=== PATIENT | male | born 1980 | race Hispanic/Latino ===

== ENCOUNTER 2020-04-11 15:56 | Inpatient (IN) | payer SELFPAY ==
[~2020-04-11 15:56] MED LIST: Iopamidol-370 76% 500 ML 1 ML ONE
[2020-04-11 16:38] LABS: #Lymphocytes 1.6 thou/uL (1.20-3.40); #Monocytes 1.5 thou/uL (0.11-0.59); #Neutrophils 10.9 thou/uL (1.40-6.50); %Basophils 0.2 % (0.0-1.0); %Eosinophils 0.3 % (0.0-10.0); %Lymphocytes 11.5 % (21.0-51.0); %Monocytes 10.4 % (0.0-10.0); %Neutrophils 77.6 % (42.0-75.0); Mean Corpuscular Hemoglobin 29.6 pg (27.0-31.0); Mean Corpuscular Volume 89.6 fL (78.0-98.0); Mean Platelet Volume 8.2 fL (7.4-10.4); Platelet Count 237 thou/uL (130-400); RBC Distribution Width 12.1 % (11.5-14.5); Red Blood Cell (RBC) Count 5.06 mill/uL (4.70-6.10); White Blood Cell (WBC) Count 14.1 thou/uL (4.8-10.8)
[2020-04-11 16:52] LABS: Bacteria/HPF None Seen HPF (None Seen); Bilirubin Negative (Negative); Blood, Urine Trace (Negative); Clarity Clear (Clear); Glucose, Urine (Dipstick) Normal (Negative); Ketone, Urine Negative (Negative); Leukocyte Negative Leu/uL (Negative); Nitrite Negative (Negative); Protein, Urine (Dipstick) Negative (Neg-Trace); RBC/HPF 0-3 HPF (0-3); Specific Gravity, Urine 1.014 (1.002-1.036); Squamous Epithelial None Seen HPF (0-3); Urobilinogen Normal mg/dL (Less than 2); WBC/HPF 0-3 HPF (0-3)
[2020-04-11] MEDS ORDERED: Morphine 4 MG/ML VIAL ONE ×2 (16:55→22:19)
[2020-04-11] MEDS ORDERED: Ondansetron PF 4 MG/2 ML Vial ONE ×2 (16:55→22:16)
[2020-04-11 16:59] LABS: ALT (SGPT) 55 U/L (8-55); AST (SGOT) 28 U/L (5-34); Alkaline Phosphatase 164 U/L (40-110); Anion Gap 14 mmol/L (10-20); BUN (Urea Nitrogen) 13 mg/dL (8.9-20.6); Bilirubin, Total 0.9 mg/dL (0.2-1.2); Calc. Creatinine Clearance 0 mL/min (70-130); Calcium 9.4 mg/dL (7.8-10.44); Carbon Dioxide 27 mmol/L (22-29); Chloride 98 mmol/L (98-107); Estimated GFR-MDRD 88; Globulin 4.1 g/dL (2.4-3.5); Glucose 103 mg/dL (70-105); Lipase 14 U/L (8-78); Potassium 4.3 mmol/L (3.5-5.1); Protein, Total 8.1 g/dL (6.0-8.3); Sodium 135 mmol/L (136-145)
--- NOTE | 2020-04-11 18:00 | CT ---
CT ABDOMEN WITH CONTRAST CT PELVIS WITH CONTRAST: DATE: 04/11/2020 HISTORY: 39-year-old male with right lower quadrant abdominal pain. Evaluate for appendicitis. COMPARISON: None TECHNIQUE: IV injection of iodinated contrast media: administered. Oral contrast media:Not administered FINDINGS: Many centimeters of the distal ileum, including terminal ileum, has severe mural thickening, with exp ansion of caliber up to 3.5 cm. There is severe surrounding fat stranding representing severe edema. This also involves the terminal ileum. There is secondary involvement the edema and inflammation involving the proximal portion of the appen louie. The distal portion of the appendix is normal. There is no organized abscess. Multiple mildly enlarged right lower quadrant mesenteric lymph nodes. Urinary bladder, abdominal aorta, kidneys, pancreas, adrenals, and spleen, are normal. Questionable f atty liver. No other hepatic abnormality identified. No pneumoperitoneum. No small bowel obstruction. IMPRESSION: Severe right lower quadrant inflammatory intra-abdominal process, primarily involving the distal ileu m, and probably secondary involvement of the cecum and proximal portion of the appendix. This is probably severe inflammatory bowel disease, more specifically Crohn's disease.
[2020-04-11] MEDS ORDERED: Piperacillin/Tazobactam 4.5 GM VIAL ONE (18:18)
[2020-04-11] MEDS ORDERED: Ondansetron PF 4 MG/2 ML Vial IVP PRN (19:31)
[2020-04-11] MEDS ORDERED: Ondansetron ODT 4 MG TAB PO PRN (19:31)
[2020-04-11] MEDS ORDERED: Calcium Carbonate 500 MG ChewTAB PO PRN (19:31)
[2020-04-11] MEDS ORDERED: Acetaminophen 325 MG TAB PO PRN (19:31)
[2020-04-11] MEDS ORDERED: Acetaminophen/Codeine 30-300mg Tablet PO PRN (19:35)
--- NOTE | 2020-04-11 20:11 | PDOC.HHP ---
Hospitalist HPI - History of Present Illness Abdominal pain History of Present Illness: Patient is a 39-year-old male with no previous GI history presents to the emergency room with worsening abdominal pain of 4 to 5 days duration. The pain got worse today for which she presented to the emergency room. The pain is intermittent moderate in intensity without any relieving factor. He has lost his appetite since food is making the pain worse. He denies any nausea, vomiting, diarrhea or change in bowel habits. He normally has 1 bowel movement on a daily basis. No hematemesis, melena or hematochezia reported. He denies any weight loss. No oral ulcers, joint pain, fever, chills, sick contacts or t ravel reported. In the emergency room his initial vital signs showed temperature 97.7 with respiration of 16 pulse rate of 85 with a blood pressure of 140/78. O2 saturation was 99% on room air. CT scan of the abdomen was consistent with severe right lower quadrant inflammatory intra-abdominal process primary involving the distal ileum and probably secondary involvement of the cecum and proximal portion of the appendix suspicious for Crohn's disease. He was evaluated by general surgery who recommended medical admission. He was started on IV Zosyn with IV fluids. He also received morphine with Zofran in the emergency room. Hospitalist ROS - Review of Systems Respiratory: denies: cough, dry, shortness of breath, hemoptysis, SOB with excertion, pleuritic pain, sputum, wheezing, other Cardiovascular: denies: chest pain, palpitations, orthopnea, paroxysmal noc. dyspnea, edema, light headedness, other All other systems reviewed; all pertinent +/- noted in HPI/Subj - Medication Medications: Reviewed with the patient and none. No known drug allergies - Exam General Appearance: NAD, awake alert Eye: PERRL ENT: normocephalic atraumatic, no oropharyngeal lesions, moist mucosa Neck: supple, symmetric, no JVD, no thyromegaly Heart: RRR, no gallops, no rubs, normal peripheral pulses Respiratory: CTAB, no rales, no ronchi, normal chest expansion, no tachypnea Gastrointestinal: soft, no guarding, no rigidity, tender to palpation (Right lower quadrant on deep palpation) Extremities: no cyanosis, no clubbing, no edema Skin: normal turgor, no lesions Neurological: cranial nerve grossly intact, normal sensation to touch, no weakness, no focal deficits Musculoskeletal: normal tone, normal strength Psychiatric: normal affect, A&O x 3 Hospitalist Results - Labs Result Diagrams: 04/11/20 16:27 04/11/20 16:27 Lab results: WBC 14.1 thou/uL (4.8-10.8) H 04/11/20 16:27 Hgb 15.0 g/dL (14.0-18.0) 04/11/20 16:27 Hct 45.3 % (42.0-52.0) 04/11/20 16:27 MCV 89.6 fL (78.0-98.0) 04/11/20 16:27 Plt Count 237 thou/uL (130-400) 04/11/20 16:27 Neutrophils % 77.6 % (42.0-75.0) H 04/11/20 16:27 Sodium 135 mmol/L (136-145) L 04/11/20 16:27 Potassium 4.3 mmol/L (3.5-5.1) 04/11/20 16:27 Chloride 98 mmol/L (98-107) 04/11/20 16:27 Carbon Dioxide 27 mmol/L (22-29) 04/11/20 16:27 BUN 13 mg/dL (8.9-20.6) 04/11/20 16:27 Creatinine 0.95 mg/dL (0.7-1.3) 04/11/20 16:27 Glucose 103 mg/dL (70-105) 04/11/20 16:27 Lactic Acid 0.9 mmol/L (0.5-2.2) 04/11/20 18:23 Calcium 9.4 mg/dL (7.8-10.44) 04/11/20 16:27 Total Bilirubin 0.9 mg/dL (0.2-1.2) 04/11/20 16:27 AST 28 U/L (5-34) 04/11/20 16:27 ALT 55 U/L (8-55) 04/11/20 16:27 Alkaline Phosphatase 164 U/L (40-110) H 04/11/20 16:27 Serum Total Protein 8.1 g/dL (6.0-8.3) 04/11/20 16:27 Albumin 4.0 g/dL (3.5-5.0) 04/11/20 16:27 Lipase 14 U/L (8-78) 04/11/20 16:27 Urine Ketones Negative mg/dL (Negative) 04/11/20 16:07 Urine Blood Trace (Negative) A 04/11/20 16:07 Urine Nitrite Negative (Negative) 04/11/20 16:07 Ur Leukocyte Esterase Negative Neeru/uL (Negative) 04/11/20 16:07 Urine RBC 0-3 HPF (0-3) 04/11/20 16:07 Urine WBC 0-3 HPF (0-3) 04/11/20 16:07 Ur Squamous Epith Cells None Seen HPF (0-3) 04/11/20 16:07 Urine Bacteria None Seen HPF (None Seen) 04/11/20 16:07 - Radiology Interpretation CT scan - abdomen Status: image reviewed by me Additional Comment: FINDINGS: Many centimeters of the distal ileum, including terminal ileum, has severe mural thickening, with exp ansion of caliber up to 3.5 cm. There is severe surrounding fat stranding representing severe edema. This also involves the terminal ileum. There is secondary involvement the edema and inflammation involving the proximal portion of the appen louie. The distal portion of the appendix is normal. There is no organized abscess. Multiple mildly enlarged right lower quadrant mesenteric lymph nodes. Urinary bladder, abdominal aorta, kidneys, pancreas, adrenals, and spleen, are normal. Questionable f atty liver. No other hepatic abnormality identified. No pneumoperitoneum. No small bowel obstruction. IMPRESSION: Severe right lower quadrant inflammatory intra-abdominal process, primarily involving the distal ileum, and probably secondary involvement of the cecum and proximal portion of the appendix. This is probably severe inflammatory bowel disease, more specifically Crohns disease Hospitalist H&P A/P - Plan Plan: Abdominal pain suspicious for Crohn's diseaserule out infectious etiology Hyponatremia CKD stage II Leukocytosis probably due to #1 Plan: Medical admit. IV fluids. IV Zosyn empirically. PPIs. Pain control. Gastroenterology consultation. As needed medications including Zofran. Stool work-up to rule out infectious etiology. Recheck labs including vitamin B12, iron, vitamin D and CRP in a.m. Clear liquid diet for now. Patient was advised to ambulate. Full code. Patient and the family understand above plan of care. Patient is primarily Bulgarian-speaking however is able to communicate in Armenian to some extent.
[2020-04-11 23:19] VITALS: BMI 31.5
[2020-04-11] MEDS: Sodium Chloride 0.9% 1,000 ML IV SCH (23:30)
--- NOTE | 2020-04-12 00:56 | HP ---
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 He has not had fever, not had nausea. He has never had such pain before. He is seen in the emergency room, evaluated, noted to have a white count of 14 and hemoglobin 15. Comprehensive metabolic profile essentially normal. Alkaline phosphatase 164. CAT scan of the abdomen and pelvis revealed changes suspected by the ER physician to be appendicitis and I was called. I examined the patient and interviewed him and indeed, he has not had such pain before. CAT scan reviewed with radiologist reveals changes consistent with inflammatory bowel disease with the terminal ileum diffusely involved, thickened inflamed, encroaching to the cecum. This seems to be more of a medical GI problem and hopefully, surgery will not be necessary. I have recommended he be admitted to the Medical Service and GI be consulted to treat his new onset inflammatory bowel disease. The patient states that there is no family history of known inflammatory bowel disease. ALLERGIES: NONE. SOCIAL HISTORY: Tobacco, none. Alcohol, none. MEDICATIONS: None. PAST SURGICAL HISTORY: Noncontributory. PAST MEDICAL HISTORY: Noncontributory. REVIEW OF SYSTEMS: Noncontributory. FAMILY HISTORY: Noncontributory. PHYSICAL EXAMINATION: VITAL SIGNS: Blood pressure 130/72, respiratory rate 18, and heart rate 78. HEAD, EARS, EYES, NOSE, AND THROAT: Unremarkable. LUNGS: Clear to auscultation. CARDIAC: Regular rate and rhythm without murmur or gallop. ABDOMEN: Soft. Mild tenderness to right lower quadrant with voluntary guarding. No peritoneal signs. EXTREMITIES: Unremarkable. ASSESSMENT AND PLAN: Radiological findings consistent with possible inflammatory bowel disease. We would recommend medical admission, Gastroenterology consultation, and I will see him periodically, be available should surgery be necessary. Hopefully, this will not be necessary. Please call if necessary. Job ID: [id number]
[2020-04-12 03:11] LABS: SARS-CoV-2 MS2 Positive; SARS-CoV-2 N Gene Negative; SARS-CoV-2 S Gene Negative; SARS-CoV-2 by NAA Not Detected (NotDetected); SARS-CoV-2 orf1ab Negative
[2020-04-12] MEDS: Sodium Chloride 0.9% 1,000 ML IV SCH ×3 (05:32→18:22)
[2020-04-12] MEDS: Piperacillin/Tazobactam 3.375 GM in Sodium Chloride 0.9% 100 ML IVPB SCH ×4 (05:33→18:21)
[2020-04-12 06:59] LABS: #Eosinphils 0.1 thou/uL (0.0-0.7); #Lymphocytes 1.2 thou/uL (1.20-3.40); #Monocytes 1.2 thou/uL (0.11-0.59); #Neutrophils 9.5 thou/uL (1.40-6.50); %Basophils 0.3 % (0.0-1.0); %Eosinophils 0.5 % (0.0-10.0); %Lymphocytes 9.9 % (21.0-51.0); %Monocytes 9.9 % (0.0-10.0); %Neutrophils 79.4 % (42.0-75.0); Hemoglobin 13.7 g/dL (14.0-18.0); Mean Corpuscular HGB CONC 33.5 g/dL (32.0-36.0); Mean Corpuscular Hemoglobin 30.2 pg (27.0-31.0); Mean Corpuscular Volume 90.4 fL (78.0-98.0); Mean Platelet Volume 8.2 fL (7.4-10.4); Platelet Count 217 thou/uL (130-400); RBC Distribution Width 12.1 % (11.5-14.5); Red Blood Cell (RBC) Count 4.52 mill/uL (4.70-6.10); White Blood Cell (WBC) Count 11.9 thou/uL (4.8-10.8)
[2020-04-12 07:01] LABS: INR-International Normal Ratio 1.1; PTT 33.6 sec (22.9-36.1); Prothrombin Time 14.3 sec (12.0-14.7)
[2020-04-12 07:17] LABS: Phosphorus 2.9 mg/dL (2.3-4.7)
[2020-04-12 07:38] LABS: Vitamin D, 25 Hydroxy 22.9 ng/ml (> 30.0)
[2020-04-12 07:44] LABS: ALT (SGPT) 38 U/L (8-55); AST (SGOT) 16 U/L (5-34); Albumin 3.4 g/dL (3.5-5.0); Alkaline Phosphatase 144 U/L (40-110); Anion Gap 14 mmol/L (10-20); BUN (Urea Nitrogen) 9 mg/dL (8.9-20.6); Bilirubin, Total 1.3 mg/dL (0.2-1.2); CRP (Inflammatory) 22.71 mg/dL (= or < 0.5); Calc. Creatinine Clearance 155 mL/min (70-130); Calcium 7.9 mg/dL (7.8-10.44); Carbon Dioxide 24 mmol/L (22-29); Chloride 101 mmol/L (98-107); Estimated GFR-MDRD Greater than 90; Globulin 3.5 g/dL (2.4-3.5); Glucose 102 mg/dL (70-105); Iron 16 ug/dL (65-175); Potassium 3.7 mmol/L (3.5-5.1); Protein, Total 6.9 g/dL (6.0-8.3); Sodium 135 mmol/L (136-145)
[2020-04-12] MEDS: Saccharomyces boulardii 250 MG CAP PO SCH (08:23)
[2020-04-12] MEDS ORDERED: FLU VACC QS2020-21(6MOS UP)/PF 60 MCG/0.5 ML SYRINGE IM ONE (09:00)
[2020-04-12] MEDS ORDERED: Ergocalciferol 1.25 MG(50,000 UNITS) CAP PO SCH (09:15)
[2020-04-12] MEDS ORDERED: Cyanocobalamin 1000 MCG/ML VIAL IM SCH (09:15)
[2020-04-12] MEDS: methylPREDNISolone Sod Succ 40 MG VIAL IVP SCH ×3 (09:50→20:23)
--- NOTE | 2020-04-12 12:41 | CON ---
DATE OF CONSULTATION: 04/12/2020 REASON FOR CONSULTATION: Abdominal pain. HISTORY OF PRESENT ILLNESS: Mr. Jonathon Campos is a 39-year-old man, who was admitted to the ER overnight with abdominal pain. He relates having a 4- to 5-day history of increasing abdominal pain that localized to the right lower quadrant. He denies having any fever. There is no nausea or vomiting. His bowel function has been normal without any diarrhea. He is specifically denies having any GI bleeding such as melena, hematochezia, or rectal bleeding. There is no fever. He has a family of 4 children and without any GI symptoms. He has no recent travel history. The pain has been increasing, but not excruciating. CT performed in the ER showed marked inflammatory process in the right lower quadrant involving the ileum and perhaps part of the cecum. PAST MEDICAL HISTORY: No medical illness. PAST SURGICAL HISTORY: No prior surgery. ALLERGIES: NONE. MEDICATIONS AT HOME: None. 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 He denies any smoking history. He does not consume alcohol. He is with 4 children. FAMILY HISTORY: Negative for any known GI problem, liver disease, or GI malignancy. REVIEW OF SYSTEMS: Ten-point review of systems did not show any other symptoms, not otherwise mentioned as above. PHYSICAL EXAMINATION: VITAL SIGNS: Temperature is 98.8, blood pressure 130/77, pulse of 80. GENERAL: He is alert, conversant without any distress. HEENT: Shows anicteric sclerae. Oropharynx is clear and moist. No ulcer. NECK: Supple. No adenopathy. CV: Shows normal S1, S2. Regular rate and rhythm. CHEST: Shows breath sounds. LUNGS: Clear to auscultation. ABDOMEN: Soft. There is moderate tenderness in the right lower quadrant, but no guarding or rebound. There is no distention. No tympany. He has active bowel sounds. EXTREMITIES: Show no edema. LABORATORY DATA: WBC is 11.9, hemoglobin 13.7, platelet count of 217. INR is 1.1, PTT 33.6. Sodium 135. Electrolytes otherwise normal. Creatinine 0.8, bilirubin is 1.3, AST 16, ALT 38, and alkaline phosphatase 144. He is COVID-[address] with contrast showed ileitis with severe mural thickening involving the distal ileum without any evidence of upstream obstruction. There is surrounding stranding and some involvement to cecum. ASSESSMENT: Clinical presentation and radiographic findings are highly suggestive of Crohn's ileitis and perhaps proximal colon involvement. His abdominal exam currently does not suggest any acute process. He does not have any obstructive symptoms. This is most likely Crohn disease and much less likely infectious process. No radiographic evidence for appendicitis. RECOMMENDATIONS: 1. Agree with stool studies as ordered. 2. Given significant peritoneal inflammatory changes in the right lower quadrant, agree with broad-spectrum antibiotics, which he is currently on, Zosyn. 3. We will start on hydrocortisone 40 mg q.8, can be reduced to 20 mg q.8 tomorrow if he continues to improve. 4. We will follow. Job ID: [id number]
--- NOTE | 2020-04-12 16:07 | PDOC.HOSPP ---
- Subjective Encounter Date: 04/12/20 Encounter Time: 10:00 Subjective: Patient seen and examined for new diagnosis of Crohn's disease. Denies any nausea, vomiting or diarrhea. Abdominal pain improving. No fever or chills reported. - Objective Vital Signs & Weight: Vital Signs (12 hours) Temp Pulse Resp BP Pulse Ox 04/12/20 12:00 18 04/12/20 08:00 98.8 F 80 18 130/77 98 04/12/20 07:23 98.8 F 80 16 130/77 98 Weight Weight 195 lb 4.8 oz Result Diagrams: 04/12/20 06:30 04/12/20 06:30 Additional Labs: Abnormal Lab Results - Last 48 hrs 04/11/20 16:07: Urine Blood Trace A 04/11/20 16:27: Sodium 135 L, Alkaline Phosphatase 164 H, Globulin 4.1 H, Albumin/Globulin Ratio 1.0 L 04/11/20 16:27: WBC 14.1 H, Neutrophils % 77.6 H, Lymphocytes % 11.5 L, Monocytes % 10.4 H, Neutrophils # 10.9 H, Monocytes # 1.5 H 04/12/20 06:30: Sodium 135 L, Iron 16 L, Total Bilirubin 1.3 H, Alkaline Phosphatase 144 H, C-Reactive Protein 22.71 H, Albumin 3.4 L, Albumin/Globulin Ratio 1.0 L 04/12/20 06:30: 25-OH Vitamin D Total 22.9 L 04/12/20 06:30: WBC 11.9 H, RBC 4.52 L, Hgb 13.7 L, Hct 40.9 L, Neutrophils % 79.4 H, Lymphocytes % 9.9 L, Neutrophils # 9.5 H, Monocytes # 1.2 H 04/12/20 06:30: Ferritin 459.86 H Microbiology - Entire Visit 04/11/20 18:25 Venous blood - Right Arm Blood Culture - Preliminary Specimen has been received and culture in progress. No Growth to date. Radiology Reviewed by me: Yes (CT abdomen reviewed) Hospitalist ROS - Review of Systems Respiratory: denies: cough, dry, shortness of breath, hemoptysis, SOB with excertion, pleuritic pain, sputum, wheezing, other Cardiovascular: denies: chest pain, palpitations, orthopnea, paroxysmal noc. dyspnea, edema, light headedness, other - Medication Medications: Active Medications Generic Name Dose Route Start Last Admin Trade Name Everardoq PRN Reason Stop Dose Admin Acetaminophen/Codeine Phosphate 1 tab 04/11/20 19:35 04/12/20 05:32 Acetaminophen/Codeine 30-300mg Tablet PO 1 tab Q4H PRN Administration Moderate Pain (4-6) Sodium Chloride 1,000 mls @ 125 mls/hr 04/11/20 19:45 04/12/20 12:11 Normal Saline 0.9% IV 1,000 mls .Q8H JAKE Administration Piperacillin Sod/Tazobactam 100 mls @ 200 mls/hr 04/11/20 23:59 04/12/20 12:10 Sod 3.375 gm/ Sodium Chloride IVPB 100 mls Q6HR JAKE Administration Methylprednisolone Sodium Succinate 40 mg 04/12/20 09:00 04/12/20 09:50 Methylprednisolone Sod Succ 40 Mg Vial IVP 40 mg 0300,0900,1500,2100 JAKE Administration Pantoprazole Sodium 40 mg 04/11/20 21:00 04/12/20 08:23 Pantoprazole 40 Mg Tab PO 40 mg BID JAKE Administration Saccharomyces Boulardii 250 mg 04/12/20 09:00 04/12/20 08:23 Saccharomyces Boulardii 250 Mg Cap PO 250 mg DAILY JAKE Administration - Exam General Appearance: NAD Heart: RRR, no gallops Respiratory: no wheezes, no ronchi Gastrointestinal: soft, non-distended, no guarding, no rigidity, tender to palpation (Mild tenderness in the right lower quadrant) Extremities: no cyanosis, no edema Neurological: no new deficit Hosp A/P - Plan DVT proph w/SCDs Abdominal pain suspicious for Crohn's diseaserule out infectious etiology Hyponatremia CKD stage II Leukocytosis probably due to #1 Vitamin D deficiency Iron deficiency Vitamin B12 deficiency Abnormal LFTs Plan: Continue IV fluidsreduce rate to 75. IV Solu-Medrol started. Diet advanced to full liquid. Continue IV Zosyn. Replace vitamin D, B12. Continue PPIsreduce to once a day. Ambulate. Continue other medications as above. WBC count improving. A.m. labs
[2020-04-12] MEDS: Cyanocobalamin (Vitamin B-12) 1,000 MCG TAB PO SCH (20:23)
[2020-04-13] MEDS: Piperacillin/Tazobactam 3.375 GM in Sodium Chloride 0.9% 100 ML IVPB SCH ×4 (01:04→17:44)
[2020-04-13] MEDS: methylPREDNISolone Sod Succ 40 MG VIAL IVP SCH ×4 (02:56→22:37)
[2020-04-13] MEDS: Sodium Chloride 0.9% 1,000 ML IV SCH ×3 (03:48→22:40)
[2020-04-13] MEDS: Saccharomyces boulardii 250 MG CAP PO SCH (09:05)
--- NOTE | 2020-04-13 10:47 | PRG ---
DATE OF SERVICE: 04/13/2020 SUBJECTIVE: Mr. Campos says he is feeling pretty good. He does have persistent right lower quadrant pain, but it has improved. No nausea or vomiting. He had what he describes as a normal nonbloody bowel movement earlier today. He is tolerating a liquid diet, receiving IV steroids and Zosyn. OBJECTIVE: VITAL SIGNS: Temperature 97.5, pulse 71, blood pressure 103/64, and 94% oxygen saturation on room air. GENERAL: No acute distress, lying in bed comfortably. HEART: Regular rate and rhythm. LUNGS: Clear to auscultation bilaterally. ABDOMEN: Bowel sounds are present. The abdomen is soft and nondistended. Tender to palpation in the right lower quadrant, but no guarding or rebound tenderness. EXTREMITIES: No peripheral edema. VESSELS: Radial pulses 2+ bilaterally. LABORATORY STUDIES: WBC is 11.9, hemoglobin 13.7, and platelets 217. Ferritin 459.86. Vitamin D is 22.9, folate 12.6, vitamin B12 is 388, CRP elevated to 22.71, BUN 9, creatinine 0.80. COVID PCR negative. One out of two blood cultures growing coagulase-negative Staph and alpha hemolytic Streptococcus. Other blood culture is negative. ASSESSMENT AND PLAN: 1. Ileitis, infectious versus inflammatory. 2. Right lower quadrant pain, secondary to ileitis, though his symptom onset is acute, the localization of inflammation by CT to the terminal ileum is suspicious for Crohn's disease. Other possibility would be acute infectious enteritis such as Campylobacter. My understanding is that stool studies have been sent, though diarrhea is not really a part of his presentation. He is doing better now on IV Zosyn and IV methylprednisolone. We can reduce the prednisolone dose down to 20 mg q.8 hours. We are also going to plan for bowel preparation this evening and diagnostic colonoscopy tomorrow. Await results of stool studies as well. The patient is in agreement, desires to proceed. Job ID: [id number]
--- NOTE | 2020-04-13 13:07 | PDOC.HOSPP ---
- Subjective Encounter Date: 04/13/20 Encounter Time: 10:30 Subjective: Patient seen and examined for new diagnosis of Crohn's disease. Denies any nausea, diarrhea or abdominal pain. No fever or chills reported. - Objective Vital Signs & Weight: Vital Signs (12 hours) Temp Pulse Resp BP Pulse Ox 04/13/20 12:24 97.5 F L 71 18 114/60 94 L 04/13/20 08:00 94 L 04/13/20 07:45 97.5 F L 71 20 103/64 94 L 04/13/20 04:00 97.7 F 72 14 115/68 94 L Weight Weight 195 lb 4.8 oz Result Diagrams: 04/12/20 06:30 04/12/20 06:30 Additional Labs: Abnormal Lab Results - Last 48 hrs 04/11/20 16:07: Urine Blood Trace A 04/11/20 16:27: Sodium 135 L, Alkaline Phosphatase 164 H, Globulin 4.1 H, Albumin/Globulin Ratio 1.0 L 04/11/20 16:27: WBC 14.1 H, Neutrophils % 77.6 H, Lymphocytes % 11.5 L, Monocytes % 10.4 H, Neutrophils # 10.9 H, Monocytes # 1.5 H 04/12/20 06:30: Sodium 135 L, Iron 16 L, Total Bilirubin 1.3 H, Alkaline Phosphatase 144 H, C-Reactive Protein 22.71 H, Albumin 3.4 L, Albumin/Globulin Ratio 1.0 L 04/12/20 06:30: 25-OH Vitamin D Total 22.9 L 04/12/20 06:30: WBC 11.9 H, RBC 4.52 L, Hgb 13.7 L, Hct 40.9 L, Neutrophils % 79.4 H, Lymphocytes % 9.9 L, Neutrophils # 9.5 H, Monocytes # 1.2 H 04/12/20 06:30: Ferritin 459.86 H Microbiology - Entire Visit 04/11/20 18:25 Venous blood - Right Arm Blood Culture - Preliminary NO GROWTH AT 48 HOURS 04/11/20 18:23 Venous blood - Left Arm Blood Culture - Preliminary Coagulase Neg Staphylococcus Alpha-Hemolytic Streptococcus Radiology Reviewed by me: Yes (CT abdomenCrohn's disease) Hospitalist ROS - Review of Systems Respiratory: denies: cough, dry, shortness of breath, hemoptysis, SOB with excertion, pleuritic pain, sputum, wheezing, other Cardiovascular: denies: chest pain, palpitations, orthopnea, paroxysmal noc. dyspnea, edema, light headedness, other - Medication Medications: Active Medications Generic Name Dose Route Start Last Admin Trade Name Freq PRN Reason Stop Dose Admin Acetaminophen/Codeine Phosphate 1 tab 04/11/20 19:35 04/12/20 05:32 Acetaminophen/Codeine 30-300mg Tablet PO 1 tab Q4H PRN Administration Moderate Pain (4-6) Cyanocobalamin 1,000 mcg 04/12/20 21:00 04/12/20 20:23 Cyanocobalamin (Vitamin B-12) 1,000 Mcg Tab PO 1,000 mcg HS JAKE Administration Piperacillin Sod/Tazobactam 100 mls @ 200 mls/hr 04/11/20 23:59 04/13/20 11:56 Sod 3.375 gm/ Sodium Chloride IVPB 100 mls Q6HR JAKE Administration Sodium Chloride 1,000 mls @ 75 mls/hr 04/12/20 16:07 04/13/20 03:48 Normal Saline 0.9% IV Not Given .[id number] JAKE Pantoprazole Sodium 40 mg 04/13/20 09:00 04/13/20 09:04 Pantoprazole 40 Mg Tab PO 40 mg DAILY JAKE Administration Saccharomyces Boulardii 250 mg 04/12/20 09:00 04/13/20 09:05 Saccharomyces Boulardii 250 Mg Cap PO 250 mg DAILY JAKE Administration - Exam General Appearance: NAD Heart: RRR, no gallops Respiratory: no wheezes, no ronchi Gastrointestinal: soft, no guarding, no rigidity Gastrointestinal - other findings: Very minimal tenderness in the right lower quadrant Extremities: no cyanosis, no clubbing Neurological: no new deficit Psychiatric: normal affect, A&O x 3 Hosp A/P - Plan DVT proph w/SCDs Abdominal pain suspicious for Crohn's diseaserule out infectious etiology Hyponatremia CKD stage II Leukocytosis probably due to #1 Vitamin D deficiency Iron deficiency Vitamin B12 deficiency Abnormal LFTs Plan: Continue IV fluids. Continue IV Zosyn. Continue IV Solu-Medrol. Continue vitamin B12, vitamin D supplementation. Blood culture 1 of 2 is probably c ontamination. Await colonoscopy. SCDs for DVT prophylaxis. Patient is ambulating.
[2020-04-13] MEDS ORDERED: GoLYTELY 4,000 ml Bottle PO SCH (17:00)
[2020-04-13] MEDS: Calcium Carbonate 600 MG + Vit D TAB PO SCH (17:44)
[2020-04-13] MEDS: Cyanocobalamin (Vitamin B-12) 1,000 MCG TAB PO SCH (20:31)
[2020-04-14] MEDS: Piperacillin/Tazobactam 3.375 GM in Sodium Chloride 0.9% 100 ML IVPB SCH ×2 (00:11→05:57)
[2020-04-14] MEDS: Sodium Chloride 0.9% 1,000 ML IV SCH ×2 (00:12→08:36)
[2020-04-14] MEDS ORDERED: Sodium Chloride 0.9% 500 ML IV SCH (00:30)
[2020-04-14] MEDS: methylPREDNISolone Sod Succ 40 MG VIAL IVP SCH ×2 (05:56→13:07)
[2020-04-14 06:09] LABS: %Basophils 0.2 % (0.0-1.0); %Eosinophils 0.2 % (0.0-10.0); %Lymphocytes 13.5 % (21.0-51.0); %Monocytes 6.3 % (0.0-10.0); %Neutrophils 79.8 % (42.0-75.0); Hemoglobin 12.9 g/dL (14.0-18.0); Mean Corpuscular HGB CONC 32.7 g/dL (32.0-36.0); Mean Corpuscular Hemoglobin 29.5 pg (27.0-31.0); Mean Corpuscular Volume 90.1 fL (78.0-98.0); Mean Platelet Volume 8.3 fL (7.4-10.4); Platelet Count 296 thou/uL (130-400); RBC Distribution Width 12.5 % (11.5-14.5); Red Blood Cell (RBC) Count 4.39 mill/uL (4.70-6.10)
[2020-04-14 06:31] LABS: Anion Gap 12 mmol/L (10-20); BUN (Urea Nitrogen) 14 mg/dL (8.9-20.6); Calc. Creatinine Clearance 159 mL/min (70-130); Calcium 8.4 mg/dL (7.8-10.44); Carbon Dioxide 27 mmol/L (22-29); Chloride 106 mmol/L (98-107); Estimated GFR-MDRD Greater than 90; Glucose 123 mg/dL (70-105); Potassium 3.7 mmol/L (3.5-5.1); Sodium 141 mmol/L (136-145)
[2020-04-14] MEDS: Calcium Carbonate 600 MG + Vit D TAB PO SCH (08:36)
[2020-04-14] MEDS: Saccharomyces boulardii 250 MG CAP PO SCH (08:36)
[2020-04-14] MEDS ORDERED: Ondansetron HCl/PF 4 MG/2 ML Vial IVP PRN (10:51)
[2020-04-14] MEDS ORDERED: Promethazine HCl 25 MG/ML VIAL SLOW IVP PRN (10:51)
[2020-04-14] MEDS ORDERED: Promethazine HCl 25 MG/ML VIAL IM PRN (10:51)
--- NOTE | 2020-04-14 11:19 | OP ---
DATE OF PROCEDURE: 04/14/2020 ACID TENDER SURGEON: None. PROCEDURE PERFORMED: Colonoscopy with biopsies. INDICATION: Severe terminal ileitis based on CT scan at presentation, right lower quadrant abdominal pain. MEDICATIONS: See Anesthesia record. FINDINGS: After discussion of the risks, benefits, and alternatives of the procedure, informed consent was obtained and witnessed. Pre-endoscopic cardiopulmonary examination was satisfactory. Time-out was performed before sedation was achieved. Sedation was achieved with Anesthesia assistance in the endoscopy unit. A Pentax adult colonoscope was prepared. Digital rectal exam was performed, which was unremarkable. The colonoscope was inserted in the anus and passed forward to the cecum in the usual fashion. The cecal base was identified by the appendiceal orifice as well as the ileocecal valve. The terminal ileum was intubated. The endoscope was only able to examine about 5 cm into the terminal ileum. There is some patchy mild erythema within the terminal ileum, but frankly, this is much more mild than expected. The remainder of the ileal mucosa that I was able to visualize actually appeared normal. I did obtain multiple biopsies from the erythematous patch within the terminal ileum. The endoscope was then slowly withdrawn in a gradual circumferential manner with careful examination of the entire colonic mucosa. The quality of the prep was good. The entire colonic mucosa appears normal including at the ileocecal valve and the cecum. There was no evidence of any polyps or mass lesions or any inflammatory changes throughout the colon. Retroflexion in the rectum was unremarkable. The colonoscope was completely withdrawn, and the patient allowed to recover. The patient tolerated the procedure well. There were no immediate postprocedure complications. IMPRESSION: 1. Mild patchy erythema in the terminal ileum, biopsied. 2. Terminal ileum only able to be examined to 5 cm. 3. Otherwise normal colonoscopy, including the ileocecal valve and the cecum. 4. Overall, findings are much less striking than anticipated based on CT imaging from a couple of days ago. I suspect this is secondary either to resolving infectious process, or a dramatic response to steroids, or possibly there is more significant small bowel disease proximal to the extent able to be examined. RECOMMENDATIONS: 1. Advance diet. 2. Follow up results of ileal biopsies. 3. With his dramatic symptomatic improvement and minimal findings on endoscopy today, I think the patient would be okay for discharge from a GI perspective. I would discharge him on an oral prednisone taper. Give 40 mg daily for five days, then 30 mg daily for five days, then 20 mg daily for five days, then 10 mg daily for five days, then stop. Antibiotics could be discontinued. 4. 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 Please call back anytime with questions or concerns. Job ID: [id number]
[2020-04-14 11:52] VITALS: TEMP 97.5
[2020-04-14 13:12] VITALS: BP 119/66
--- NOTE | 2020-04-14 14:46 | PDOC.DS.DS ---
Provider - Provider Date of Admission: 04/11/20 18:37 Date of Discharge: 04/14/20 Admitting Provider: Anibal Florence MD Consultations: Gastroentrology Primary Care Physician: JAYCEE PCP PROVIDER Course - Hospital Course Hospital Course: Patient is a 39-year-old male who presented to the emergency room on 04/[address] scan of the abdomen was consistent with changes consistent with Crohn's disease involving the right lower quadrant. Please refer to the history and physical for further details. The patient was admitted to the medical floor with the above diagnosis. He was started on IV Zosyn, IV fluids along with Solu-Medrol 20 mg every 8 hourly. Abdominal pain gradually improved. He underwent colonoscopy today that showed mild patchy erythema in the terminal ileum that was biopsied otherwise colonoscopy was normal including the ileocecal valve and the cecum. He will be discharged home on prednisone taper per gastroenterology. He was advised to follow-up with gastroenterology in 2 to 3 weeks. Final diagnosis: Abdominal pain due to new diagnosis of Crohn's disease Hyponatremia CKD stage II Leukocytosis probably due to #1 Vitamin D deficiency Iron deficiency Vitamin B12 deficiency Abnormal LFTs Resuscitation Status: 04/11/20 19:31 Resuscitation Status Routine Resuscitation Status: FULL: Full Resuscitation - Labs Lab Results: 04/14/20 05:37 04/14/20 05:37 Abnormal Lab Results - Last 48 hrs 04/14/20 05:37: WBC 15.0 H, RBC 4.39 L, Hgb 12.9 L, Hct 39.6 L, Neutrophils % 79.8 H, Lymphocytes % 13.5 L, Neutrophils # 12.0 H, Monocytes # 1.0 H Microbiology - Entire Visit 04/11/20 18:23 Venous blood - Left Arm Blood Culture - Preliminary Coagulase Neg Staphylococcus Alpha-Hemolytic Streptococcus 04/11/20 18:25 Venous blood - Right Arm Blood Culture - Preliminary NO GROWTH AT 48 HOURS - Physical Exam Vitals: Vital Signs (12 hours) Temp Pulse Resp BP Pulse Ox 04/14/20 12:58 53 L 119/66 04/14/20 12:28 54 L 128/77 04/14/20 12:00 55 L 127/79 04/14/20 11:51 97.5 F L 04/14/20 11:30 57 L 18 130/79 97 04/14/20 08:00 95 04/14/20 07:34 98.4 F 59 L 18 116/67 95 04/14/20 05:42 95 04/14/20 04:00 97.8 F 60 16 119/73 95 Weight Weight 195 lb 4.8 oz Physical Exam: The patient was seen and examined on the day of discharge. Plan - Discharge Medications Prescriptions: Calcium Carbonate [Caltrate] 600 mg PO BID #60 tab Famotidine [Pepcid] 20 mg PO BID #60 tab predniSONE 40 mg PO ASDIR #100 tab Cyanocobalamin (Vitamin B-12) [Vitamin B-12] 1,000 mcg PO HS #30 tab Home Medications: Medication Instructions Recorded Confirmed Type Calcium Carbonate [Caltrate] 600 mg PO BID #60 tab 04/14/20 Rx Cyanocobalamin (Vitamin B-12) 1,000 mcg PO HS #30 tab 04/14/20 Rx [Vitamin B-12] Famotidine [Pepcid] 20 mg PO BID #60 tab 04/14/20 Rx predniSONE 40 mg PO ASDIR #100 tab 04/14/20 Rx Allergies: No Known Allergies Allergy (Unverified 04/11/20 20:37) - Follow up Plan Referrals: [facility] [MD Not on Staff] - 7 Days Sai Pham MD [Active] - 2-3 Weeks Disposition: HOME Quality - Care Measures CORE MEASURES:: N/A
[2020-04-19] MEDS ORDERED: Ergocalciferol 1.25 MG(50,000 UNITS) CAP PO SCH (09:00)
== END 2020-04-14 15:46 | disposition home or self-care (01) | DRG 386 ==
LOC: ERS 15:56 → T4-B 18:37
PROVIDERS: ADMIT Internal Medicine; ATTEND Internal Medicine
PROC: 0DBB8ZX Excision of Ileum, Via Natural or Artificial Opening Endoscopic, Diagnostic (ICD-10-PCS; principal; 2020-04-14)
DX: K50.00 Crohn's disease of small intestine without complications (principal); E87.1 Hypo-osmolality and hyponatremia; N18.2 Chronic kidney disease, stage 2 (mild); D72.829 Elevated white blood cell count, unspecified; E55.9 Vitamin D deficiency, unspecified; E61.1 Iron deficiency; R79.89 Other specified abnormal findings of blood chemistry; Z20.828 Contact with and (suspected) exposure to other viral communicable diseases
CPT/HCPCS: 36415; 74177; 80048; 80053; 81003; 81015; 82306; 82607; 82728; 82746; 83540; 83605; 83690; 83735; 84100; 85025; 85610; 85730; 86140; 87040; 87149; 87635; 90471; 90662; 93005; 93010; 96365; 96366; 96375; 96376; G0008; J2270; J2405; J2543; J2920; J3420; J3490; Q9967; U0003